=== PATIENT | male | born 1970 | race Caucasian/White ===

== ENCOUNTER 2016-07-26 15:54 | Emergency (ER) | payer OTHER ==
[~2016-07-26] VITALS: Ht 165.1 cm; Wt 78.6 kg
[~2016-07-26 15:54] MED LIST: CIPR-198 PO; METR500T PO
[2016-07-26 16:03] VITALS: BP 144/86; PULSE 108; RESP 18; O2SAT 98
--- NOTE | 2016-07-26 16:20 | ED.REPORT ---
HPI-Rash / Abscess Date of Service July 26, 2016 ED Provider: Deejay Zhang MD The patient is a 46 year old male with no pertinent medical history who presents to the emergency department complaining of a right thumb wound that occurred 2 days ago. The patient states he found a bottle with clear water that smelled like senior solutions consultant and had multiple old used needles in it. He went to empty the bottle and stuck himself with a needle on his right thumb. He also complains of right axilla pain, chills, and diaphoresis. He denies history of Hep C. or HIV. Nursing Notes Stated Complaint: STABBED WITH DIRTY NEEDLE Chief Complaint: Skin Rash/Abscess Nursing Notes Reviewed: Yes Allergies: Coded Allergies: No Known Allergies (Unverified Allergy, Unknown, 11/30/14) Scheduled Cephalexin (Keflex) 500 Mg Capsule 500 MG PO QID Ciprofloxacin (Ciprofloxacin) 500 Mg Tablet 500 MG PO BID Metronidazole (Flagyl) 500 Mg Tablet 500 MG PO Q8H Sulfamethoxazole/Trimeth 800-160 mg (Bactrim DS) 1 Each Tablet 1 TABLET PO BID General Time Seen by MD: 16:18 Chief Complaint Sore Hx Obtained From: Patient Arrived By: Walk-in Onset Occurred: 2 days ago Symptom Duration: Since onset Location: : Hand Quality: Painful Severity: Current: Mild Severity: Maximum: Mild Additional Notes: +chills, diaphoresis, and right axilla pain Pertinent Negative: Pt denies other symptoms Recent Healthcare: No recent doctor visit, No recent hospitalization Similar Sx Previous: No Past Medical History Past Medical History denies Past Surgical History denies Family History Noncontributory Smoking History Current Every Day Smoker Social History Alcohol Use: Denies alcohol use Drug Use: Denies drug use Other Social History: Local resident Occupation homeless, has aplace, lives with girlfriend and dog maite Ambulatory Status Independent Review of Systems Review of Systems Note: +right axilla pain, right thumb wound Constitutional: Reports: Chills Skin: Reports Diaphoresis Complete sys rev & neg: except as marked. Physical Exam Initial Vital Signs Vital Signs (First) Date Time Temp Pulse Resp B/P Pulse Ox O2 Delivery O2 Flow Rate FiO2 07/26/16 16:03 37.4 108 18 144/86 98 Room Air Initial VS: Reviewed Head / Eyes: Atraumatic, Normocephalic, PERRL ENT: Mucous membranes moist, Conjunctiva normal, No scleral icterus Abdomen / GI: Soft, Non-tender, No guarding, No rebound, No distention Extremities: Vascular intact, Neuro intact, No swelling, No tenderness Neurologic: Alert, Oriented, Nonfocal Psychiatric: Mood/affect normal, Behavior normal, Normal thought content General/Constitutional: Awake, Alert, No acute distress, Well appearing Skin: Warm, Dry Rash / Lesion Notes: He has a puncture wound about the distal aspect of his right thumb with some mild surrounding erythema extending out about 1 cm. Respiratory / Chest: Atraumatic, Breath sounds NL, Breath sounds = bilat, No respiratory distress, No rales, No rhonchi, No wheezing Cardiovascular: Heart rate NL, Regular rhythm, Heart sounds NL, No murmurs, No rubs, Peripheral circulation NL Neck: Supple, Full range of motion, Non-tender There is a lipoma about the base of his neck. Interpretation & Diagnostics Lab Results Interpretation Test 07/26/16 17:13 Re-Eval/Medical Decision Med Decision/Clinical Course The patient is a 46 year old male with no pertinent medical history who presents to the emergency department complaining of a right thumb wound that occurred 2 days ago. The patient states he found a bottle with clear water that smelled like senior solutions consultant and had multiple old used needles in it. He went to empty the bottle and stuck himself with a needle on his right thumb. He denies history of Hep C. or HIV. Denies history of IV drug use. No other complaints at this time. Examination reveals what appears to be a small region of cellulitis about his thumb. I see no other associated injuries. No foreign body present. Origin of needles unknown. Discussed HIV PPX and risk of acquiring HIV. Opted not to proceed with this at this time. Post exposure prophylaxis panel ordered. Given mild infection patient will be treated with course of Bactrim/Keflex. Advised to follow up in the next week regarding laboratory studies obtained today. Return immediately for any signs of worsening infection. Prior to discharge follow-up and return precautions were reviewed in detail with the patient who verbalized understanding and agreement with the plan. The patient was discharged in stable condition. Source of Hx: Old records Re-Evaluation/Progress : Time of Eval: 16:45 Re-Evaluation/Progress Note: Discussed plan for discharge. Counseled Regarding: Diagnosis, Need for follow-up, When/why to return to ED Discharge & Departure Impression: Primary Impression: Needle stick injury Encounter type: initial encounter Qualified Code: W27.3XXA - Contact with needle (sewing), initial encounter Additional Impression: Cellulitis Site of cellulitis: extremity Site of cellulitis of extremity: finger Laterality: right Qualified Code: L03.011 - Cellulitis of right finger Disposition: Home Discharge Condition All VS Reviewed: Yes Condition: Stable Patient Instructions: Cellulitis (ED) Additional Instructions: Thank you for seeking care at the emergency room. Our primary goal today in the ED was to evaluate you for any life-threatening conditions. Your evaluation was reassuring. You will be discharged with a prescription for antibiotics. Followup at the residency clinic to obtain the test results that were obtained today. You should return to the ED immediately if you develop increased pain, swelling or redness, fevers, vomiting or any other concerning signs or symptoms. Thank you for letting us partake in your care today. Referrals: [facility] Scribe Attestation Portions of this note were transcribed by Yesi Luis. I, Dr. Zhang personally performed the history, physical exam and medical decision-making; I reviewed and confirmed the accuracy of the information in the transcribed note. Signed by: Sveta Hyman 07/26/2016 at 1700. Deejay Zhang MD July 26, 2016 16:20 Yesi Luis July 26, 2016 16:36
[2016-07-26] MEDS ORDERED: CEPH-512 PO (16:45)
[2016-07-26] MEDS ORDERED: SULF1TAB7 PO (16:45)
== END 2016-07-26 17:21 | disposition home or self-care (01) ==
LOC: SED 15:54
DX: L03.011 Cellulitis of right finger (principal); W27.3XXA Contact with needle (sewing), initial encounter; Y93.89 Activity, other specified; Y92.89 Other specified places as the place of occurrence of the external cause; Y99.8 Other external cause status; F17.200 Nicotine dependence, unspecified, uncomplicated; Z59.0 Homelessness
CPT/HCPCS: 36415; 86706; 87340; 99283; G0433

== ENCOUNTER 2016-09-28 07:23 | Emergency (ER) | payer OTHER ==
[~2016-09-28] VITALS: Ht 165.1 cm; Wt 76.8 kg
[~2016-09-28 07:23] MED LIST changes: +CEPH-512 PO; +SULF1TAB7 PO
[2016-09-28 07:27] VITALS: BP 143/95; PULSE 121; RESP 12; O2SAT 98
--- NOTE | 2016-09-28 07:31 | ED.REPORT ---
HPI-Rash / Abscess Date of Service Sep 28, 2016 ED Provider: Terry Chaudhary MD Patient is an otherwise healthy 46 year old male who presents to the ED complaining of a cyst on the back of his neck onset 5 years ago. He denies pain , fever, discharge, recent changes in the cyst, or any other symptoms. He has had it looked at previously but it has never been drained. Nursing Notes Stated Complaint: CYST Chief Complaint: Skin Rash/Abscess Nursing Notes Reviewed: Yes Allergies: Coded Allergies: No Known Allergies (Unverified Allergy, Unknown, 11/30/14) Scheduled Cephalexin (Keflex) 500 Mg Capsule 500 MG PO QID Ciprofloxacin (Ciprofloxacin) 500 Mg Tablet 500 MG PO BID Metronidazole (Flagyl) 500 Mg Tablet 500 MG PO Q8H Sulfamethoxazole/Trimeth 800-160 mg (Bactrim DS) 1 Each Tablet 1 TABLET PO BID General Time Seen by MD: 07:30 Chief Complaint Other (Cyst ) Hx Obtained From: Patient Arrived By: Walk-in Onset Occurred: More than a week ago... (5 years ) Symptom Duration: Since onset Severity: Current: No pain currently Severity: Maximum: No pain Past Medical History Past Medical History denies Past Surgical History denies Family History Noncontributory Smoking History Current Every Day Smoker Social History Alcohol Use: "Social" Drug Use: Denies drug use Other Social History: Local resident Occupation homeless, has aplace, lives with girlfriend and dog maite Ambulatory Status Independent Review of Systems Review of Systems Note: +neck mass -pain, discharge Constitutional: Denies: Fever Complete sys rev & neg: except as marked. Physical Exam Initial Vital Signs Vital Signs (First) Date Time Temp Pulse Resp B/P Pulse Ox O2 Delivery O2 Flow Rate FiO2 09/28/16 07:27 37.0 121 12 143/95 98 Room Air Initial VS: Reviewed, Vital signs abnormal Head / Eyes: Atraumatic, Normocephalic Respiratory: No respiratory distress Neurologic: Alert, Oriented, Nonfocal Psychiatric: Mood/affect normal, Behavior normal, Normal thought content General/Constitutional: Awake, Alert, No acute distress Skin: Color NL, Warm, Dry Heart Rate / Rhythm: Positive: Tachycardia Neck: Full range of motion 6x6 cm soft mass on L lateral neck/ upper back no erythema, discharge, fluctuance Abdomen: Atraumatic, Soft, Non-tender Re-Eval/Medical Decision Med Decision/Clinical Course 36-year-old male presenting complaining of left neck mass is 5 years. He has not had any recent changes. Denies any sent symptoms infection. He is here requesting to be taken out. He has a large left neck mass 6 x 6 cm soft no evidence of infection. Possible cyst versus lipoma versus other. Patient will be referred to general surgery and primary doctor for evaluation. Return precautions given. Re-Evaluation/Progress : Time of Eval: 07:43 Re-Evaluation/Progress Note: Discussed plan for discharge with surgeon F/U. Patient understands and agrees with plan. All questions addressed at this time. Counseled Regarding: Diagnosis, Need for follow-up, When/why to return to ED Discharge & Departure Impression: Primary Impression: Neck mass Disposition: Home Discharge Condition All VS Reviewed: Yes Condition: Stable Patient Instructions: Cyst (ED) Additional Instructions: Thank you for entrusting us with your care. Follow up with surgery to discuss the removal of your cyst. Return to the emergency department for fever, discharge, redness, or any other new or worsening symptoms. Referrals: Neo Brewer MD Scribe Attestation Portions of this note were transcribed by Janie Kramer. I, Dr. Chaudhary personally performed the history, physical exam and medical decision-making; I reviewed and confirmed the accuracy of the information in the transcribed note. Terry Chaudhary MD Sep 28, 2016 07:31 JANIE KRAMER Sep 28, 2016 07:39
== END 2016-09-28 08:02 | disposition home or self-care (01) ==
LOC: SED 07:23
DX: R22.1 Localized swelling, mass and lump, neck (principal); F17.200 Nicotine dependence, unspecified, uncomplicated; Z59.0 Homelessness

== ENCOUNTER 2016-10-06 05:43 | Day surgery (SDC) | payer OTHER ==
[2016-10-06] VITALS (10 sets, daily range): BP systolic 113–132; BP diastolic 64–78; PULSE 67–90; RESP 14–18; O2SAT 95–99
[~2016-10-06] VITALS: Ht 165.1 cm; Wt 74.2 kg
[2016-10-06] MEDS ORDERED: Succinylcholine Chloride 20 mg/mL 5 mL Inj ONE (05:44)
[2016-10-06] MEDS ORDERED: Dexamethasone 4 mg/mL Inj ONE (05:44)
[2016-10-06] MEDS ORDERED: MetoCLOpramide 5 mg/mL 2 mL Inj ONE (05:44)
[2016-10-06] MEDS ORDERED: Ondansetron 2 mg/mL 2 mL Inj ONE (05:44)
[2016-10-06] MEDS ORDERED: Propofol 10,000 mCg/mL 20 mL Inj ONE (05:44)
[2016-10-06] MEDS ORDERED: fentaNYL-PF 50 mCg/mL 2 mL Inj ONE (05:44)
[2016-10-06] MEDS ORDERED: CeFAZolin 2 Gm/50 mL D5W Duplex Bag IV ONE (05:52)
[2016-10-06] MEDS: Lactated Ringer's 1,000 ML IV SCH ×2 (06:12→07:27)
[2016-10-06] MEDS ORDERED: CeFAZolin Inj 2 GM in IV Premix 1 EACH IV ONE (07:00)
--- NOTE | 2016-10-06 07:20 | PCM.HPANE ---
Patient Data Date of Service: Oct 06, 2016 Surgeon Admitting Provider: Attending Provider:Fred Solo MD Primary Care Physician:Evan Other Provider:Madhuri Leonardo Anesthesia Reason for Visit Subcutaneous Neck Mass Ht/WT & BMI Height (Feet): 5 Height (Inches): 5.00 Weight (Kilograms): 74.2 Body Mass Index 27.00 Allergies Coded Allergies: No Known Allergies (Unverified Allergy, Unknown, 10/05/16) Past Anesthesia History Anesthesia History: Positive for:: Anesthesia Reactions (never had surgery), Denies:: Abnormal Airway, Difficult Intubation, Fam Anesthesia Reaction, Fam Malignant Hypertherm, Malignant Hyperthermia Diabetes History Hx Diabetes?: No MRSA MRSA: No Medications Hypertension Medication: No Home Meds Incl [place]: No Discontinued Scripts Sulfamethoxazole/Trimeth 800-160 mg (Bactrim DS)1 Each Tablet1 Tablet PO BID 7 Days Prov:Deejay Zhang MD 07/26/16 Cephalexin (Keflex)500 Mg [id number] Mg PO QID 7 Days Prov:Deejay Zhang MD 07/26/16 Metronidazole (Flagyl)500 Mg [id number] Mg PO Q8H #30 TABLET Prov:Kody Cam DO 09/23/15 Ciprofloxacin 500 Mg [id number] Mg PO BID #20 TABLET Prov:Kody Cam DO 09/23/15 History History of ENT Problems?: No HEENT History: Denies:: Abnormal Airway Cataracts Difficult Intubation Dysphagia Glaucoma Hearing Problem Sinus Problem TMJ Denture Type: None Teeth Condition: Tooth Decay Missing Teeth Hx of Heart Problems?: No Cardiovascular History: Denies:: Abdominal Aortic Aneurism Atrial Fibrillation Cardiac Surgery Chest Pain Congestive Heart Failure Coronary Artery Disease Edema Heart Murmur Hypertension Irregular Heartbeat Peripheral Vascular Rheumatic Fever Thrombophlebitis Valvular Heart Disease Hx of Respiratory Problem?: No Respiratory History: Denies:: Asthma COPD Chest Surgery Cough Dyspnea Emphysema Hemoptysis Pneumonia Pulmonary Embolism Tuberculosis Use of C-PAP Machine Hx Neurologic Problems?: No Neurological History: Denies:: CVA Seizures TIA Hx of GI Problems?: No Gastrointestinal History: Denies:: Gastroesphageal Reflux Hx of Problems?: No Male Hx: Denies:: Prostate Problems Scrotal Mass Testicular Surgery Skin History: Denies:: History Skin Disorders? Pressure Ulcers Hx Musculoskeletal Problems?: No Hx of Psycho/Social Problems?: No Hx Surgeries?: No (NONE) Other History: Denies:: Cancer Endocrine Disease Hospitalization Thyroid Disease History Blood Transfusions: Positive for:: Accept Blood Products? Denies:: Blood Transfusions Hx Diabetes: No Hx Alcohol Use: NoHx Substance Use: No Smoking Status: Current Every Day Smoker Approx How Many Cigarettes/day: 3 cigars daily Stop/Bang Treated for Sleep Apnea?: No Do You Have a CPAP Machine?: No S-Snoring: Do You Snore Loudly: No T-Tired: feel tired, fatigued: No O-Obsered: Observed not breath: No P-Blood Pressure: treated: No B- Body Mass Index > 35 kg/m2: No A- Age over 50: No N- Neck Large Circumference: No G- Gender Male: Yes BUNNY Total Score: 1 Risk Assessment Category Category 1A: Patient has history of documented sleep apnea, and HAS NOT received any narcotic, sedative or anesthesia administration during this stay. Category 1B: Patient has history of documented sleep apnea, and HAS received any narcotic , sedative or anesthesia administration during this stay Category 2: Patient has SUSPECTED Obstructive Sleep Apnea, and HAS received any narcotic , sedative or anesthesia administration during this stay. Category 3: Patient has SUSPECTED Obstructive Sleep Apnea and HAS NOT received narcotic, sedative or anesthesia administration during this stay. Category 4: Outpatient in Procedural Areas with known sleep apnea or who screen positive for High Risk via the STOP/BANG questionnaire. Exam Exam Vital Signs Vital Signs Date Time Temp Pulse Resp B/P Pulse Ox O2 Delivery O2 Flow Rate FiO2 10/06/16 06:10 36.3 90 16 128/77 98 Room Air General Appearance: Alert, Oriented X3, Cooperative, No Acute Distress HEENT/AIRWAY: MP 2, Neck Movement (FROM), Mouth Opening (3), Other (tmd<3) Lungs: Diminished Heart: Exam Unremarkable, Regular Rate/Rhythm, Normal S1, Normal S2 Additional Information somnolent but arousable; eyes bloodshot Meds/Labs/Diagnostics Admission Meds Current Medications Lactated Ringer's (Lr) 1,000 ml @ 120 mls/hr Q8H20M IV Last administered on t 06:12; Start 10/06/16 at 05:00; Stop 10/06/16 at 13:19 Plan Impression Patient chart reviewed, patient interviewed and anesthestic plan with risks, benefits, and alternatives discussed, and informed consent obtained. NPO per Anesth. Guidelines: Yes ASA Physical Status: ASA2 Mod Systemic Disease Anesthetic Plan: GA Bene/Risks/Altern/Consents: Yes HP Complete Prior to Induction: Yes Josemanuel Vasquez MD Oct 06, 2016 07:20
[2016-10-06] MEDS ORDERED: Bupivacaine-MPF 0.5% 30 mL Inj INFILTRATE ONE (08:12)
[2016-10-06] MEDS ORDERED: Lactated Ringer's 500 ML IV PRN (08:16)
[2016-10-06] MEDS ORDERED: Lactated Ringer's 1,000 ML IV SCH (08:16)
[2016-10-06] MEDS ORDERED: Dexamethasone 4 mg/mL Inj IVPUSH PRN (08:20)
[2016-10-06] MEDS ORDERED: Ondansetron 2 mg/mL 2 mL Inj IVPUSH PRN (08:20)
[2016-10-06] MEDS ORDERED: HYDROmorphone 1 mg/mL Inj IVPUSH PRN (08:20)
[2016-10-06] MEDS ORDERED: MetoCLOpramide 5 mg/mL 2 mL Inj IVPUSH PRN (08:20)
[2016-10-06] MEDS ORDERED: EPHEDrine Sulfate 50 mg/mL Inj IVPUSH PRN (08:20)
[2016-10-06] MEDS ORDERED: fentaNYL-PF 50 mCg/mL 2 mL Inj IVPUSH PRN (08:20)
[2016-10-06] MEDS ORDERED: Phenylephrine 10,000 mCg/mL Inj IVPUSH PRN (08:20)
--- NOTE | 2016-10-06 08:57 | PCM.SURGPO ---
Immediate Operative Note Date of Surgery: Oct 06, 2016 Pre Operative Diagnosis Subcutaneous mass - nape of neck Post Operative Diagnosis Subcutaneous mass - Nape of neck Procedure Resection of Subcutaneous Mass - Nape of Neck Surgeon and Tanker Service Attendant Surgeon: Fred Solo MD Assistants: TRINA Tavares, Nader Osei DO, Kobe Smith, MS3 Findings [id number] Mass grossly consistent with lipoma Complications There were no periprocedural complications identified. Surgical Specimen Removed: Yes Specimen sent to Pathology: Yes Anesthetic Administered: GA Grafts, Implants: None Output, Estimated Blood Loss: 0 Blood Admin during surgery: No Attending Statement Finishing Powder Press Operator listed was not medically necessary for the successful completion of the case Fred Solo MD Oct 06, 2016 08:57
[2016-10-06] MEDS ORDERED: oxyCODONE-Acetamin 5-325 mg Tablet PO PRN (09:05)
--- NOTE | 2016-10-06 09:11 | PCM.DISURG ---
Surgical Discharge Instruction Date of Service Oct 06, 2016 Dates of Hospitalization Date of Hospital Admission Providers Admitting Physician: Primary Care Physician: Evan Attending Physician: Fred Solo MD Discharge Diagnosis Post Operative diagnosis Subcutaneous mass - Nape of neck Diet Discharge Diet: No restrictions Activity Discharge Activity-General: Be up and about, Activity as pain allows, No driving while taking narcotic Dressing and Incisional Care Dressing Care: Allow Steri Stripes to fall off, Remove outer dressing after 24 hrs Hygiene: May shower after (24 hours), DO NOT soak incision under water, NO bathtub, hot tub or whirlpool Follow Up Plan Follow Up Plan Follow up in 2 weeks in the general surgery clinic. Please have your wound evaluated prior to traveling to [place]. Call at any time prior to questions or concerns. Call your provider for: Fever, Chills, Wound redness, Increasing wound pain, Discharge @ incision, pus discharge Eloy Beck MD Oct 06, 2016 09:11
--- NOTE | 2016-10-06 14:11 | OP ---
[address] [address] OPERATIVE REPORT PATIENT: ORQUIDEA BAZZI : 1970 MR#: [id number] ADMIT: 10/06/2016 JOB ID: [id number] DATE OF SURGERY: 10/06/2016 PREOPERATIVE DIAGNOSIS(ES): Subcutaneous mass of the nape of the neck. POSTOPERATIVE DIAGNOSIS(ES): Subcutaneous mass of the nape of the neck. PROCEDURE PERFORMED: Resection of subcutaneous mass of the nape of the neck. SURGEON: Fred Solo MD CLINICAL EDITOR: Kirby Shipman PA-C, Trish Osei DO, and Thelma Smith, 3. COMPLICATIONS: None. CONDITION OF THE PATIENT: Stable. INDICATIONS: The patient is a 46-year-old gentleman who has had a mass on the back of his neck for a number of years. He presented to our Urgent Care saying he got an ultrasound in correction and he was told it was a cyst. An incision and drainage was attempted but was abandoned after encountering some bleeding and I was asked to perform an excision. After discussing the risks, benefits, and alternatives, he is here to have that done. He underwent smooth induction of general anesthesia and was placed in a prone position. The neck was prepped and draped in the usual sterile fashion. A surgical time-out was undertaken using safety checklist, and all were in agreement. I began by making an elliptical incision around the old incision and divided the skin sharply with a knife followed by cautery. I took the dissection down to the apparent lipoma and excised this ellipse of skin right on to the lipoma. After I got into the plane, I was able to bluntly dissect the entire lipoma out without breaking into it. After that, I looked carefully for good hemostasis and then closed the wound in layers of 3-0 Vicryl followed by 4-0 Monocryl in a subcuticular suture. The patient had a sterile dressing applied after Steri-Strips and was recovered from anesthesia and was taken to the recovery room in stable condition.
--- NOTE | 2016-10-06 14:56 | PCM.ANEP1 ---
Post Anesthesia PACU Phase 1 Assessment Date of Service: Oct 06, 2016 Vital Signs Vital Signs Date Time Temp Pulse Resp B/P Pulse Ox O2 Delivery O2 Flow Rate FiO2 10/06/16 10:35 75 14 113/70 96 Room Air 10/06/16 09:40 36.3 69 16 114/65 96 Room Air 10/06/16 09:35 67 16 119/64 96 Room Air 10/06/16 09:30 67 14 118/64 95 Room Air 10/06/16 09:20 36.2 69 15 122/69 95 Room Air 10/06/16 09:15 71 15 116/65 95 Room Air 10/06/16 09:10 71 17 125/66 96 Room Air 10/06/16 09:05 73 18 125/76 98 Simple Mask 8 10/06/16 09:03 36.3 75 16 132/78 99 Simple Mask 8 Anesthetic Administered: GA Level of Alertness: Awake, talking OSBORNE's with Equal Strength: Yes Pain: No Pain Scale Score: 0 Nausea or Vomiting: No CV Function & Hydration Stable: Yes Airway Device: Endotrachial Tube Oxygen Delivery: Simple Mask Lungs: Diminished Summary 10/06/16 09:40 36.3 69 16 114/65 96 Room Air PACU Phase 2 Assessment Complications: No Follow up Care: N/A Patient Instructions Provided: N/A Josemanuel Vasquez MD Oct 06, 2016 14:56
--- NOTE | 2016-10-09 18:15 | PATH ---
SURGICAL PATHOLOGY Attending Physician:Fred Solo MD CASE STATUS: Signed Out PATIENT NAME: ORQUIDEA BAZZI PID: [id number] : 1970 DATE COLLECTED:10/06/2016 21:27 SPECIMEN: Soft Tissue, Lipoma CLINICAL HISTORY: SUBCUTANEOUS MASS OF NECK 1). SUBCUTANEOUS MASS NAPE OF NECK FINAL DIAGNOSIS: 1.NAPE OF NECK, SUBCUTANEOUS MASS, EXCISION: MATURE ADIPOSE TISSUE CONSISTENT WITH LIPOMA. ICD10 D17.9 GROSS DESCRIPTION: The specimen is received in formalin, labeled with the patient's name, sublabeled as subcutaneous mass nape of neck and consists of yellow smooth shiny rubbery fatty mass (8.5 x 8.0 x 4.7 cm) with a homogenous unremarkable cut surface. Ink code: blue- exterior. Section code: (A-D) fatty mass, serially sectioned, public relations representative. 10/07/16 MICRO DESCRIPTION: See diagnosis. ICD-9 CODES: CPT CODES: 1: 07493 Electronically Signed Out Trevon Acosta MD, Ph.D. [facility] [address], [place] [address] Technical component performed at [facility], [facility] [address], [place], [address]
== END 2016-10-06 23:59 | disposition home or self-care (01) ==
LOC: SAS 05:43
PROVIDERS: ATTEND Student in an Organized Health Care Education/Training Program
DX: D17.0 Benign lipomatous neoplasm of skin and subcutaneous tissue of head, face and neck (principal); R22.1 Localized swelling, mass and lump, neck; F17.290 Nicotine dependence, other tobacco product, uncomplicated
CPT/HCPCS: 11426; J0330; J0690; J1100; J1885; J2250; J2405; J2765; J3010; J7120